=== PATIENT | male | born 1970 | race Caucasian/White ===

== ENCOUNTER → 2019-02-22 | Outpatient (CLI) | payer BC ==
[~2019-02-22] MED LIST: CATHETER FLUSH 10 ML SYR IV PRN; HOLD METFORMIN - RECEIVED CONTRAST 20 ML VIAL IV SCH; IOHEXOL 350 MG/ML 100 ML (OMNIPAQUE 350) VIAL IV ONE; NS 100 ML (IVPB) BAG IV ONE
--- NOTE | 2019-02-22 10:33 | Diagnostic Imaging Report ---
CLINICAL INDICATION: Patient with left-sided neck swelling x1 month. Patient has a history of hyperparathyroidism. Patient has surgical history of partial parathyroidectomy. EXAM: CT scan of the neck soft tissue performed with 75 cc of Omnipaque 350 IV contrast. Sagittal and coronal reformatted images are created. COMPARISON: None. FINDINGS: There are postop changes with partial thyroidectomy with the right thyroid gland and part of the isthmus removed. There are surgical clips in the right thyroid bed area. There is a 6 mm x 5 mm nodular area in the superior right thyroid bed region seen on series 2, image 63 of the axial sequence. There is another 5 mm x 3.5 mm nodular area in the mid right thyroid bed region seen on series 2, image 70. Remaining left thyroid gland is unremarkable. The nasopharynx, oropharynx, hypopharynx, and laryngeal soft tissue structures are unremarkable and symmetric. Visualized portion of the tongue, sublingual space, and submandibular regions are unremarkable. The bilateral submandibular glands are unremarkable. The neck vascular structures are unremarkable. There is no significant lymphadenopathy. There is a marker lymph node in the left level IIa region which measures 14 mm x 8 mm which has a fatty hilum. There is no evidence of left neck soft tissue swelling, fluid collection, or neck mass seen. There is mild atelectasis involving the visualized upper lung lyman. There are cervical spine vertebral body spurs which is most pronounced at the C4-C7 levels with suggestion of diffuse disc bulges. There is moderate right C5-C6 neuroforaminal narrowing due to uncinate spurs and mild to moderate bilateral C6-C7 bony neuroforaminal narrowing due to uncinate spurs. There is at least mild bony central canal narrowing at the C6-C7 level due to posterior disc spurs. The visualized intracranial structures and orbits are unremarkable. There is mild mucosal thickening involving both maxillary sinuses and ethmoid sinus. Mastoid air cells are clear. IMPRESSION: 1: There are right thyroidectomy changes with surgical clips in the region. There are two, nonspecific, nodular soft tissue areas in the superior and mid right thyroid bed region with the largest measuring 6 mm in greatest dimension. This is described above. These are nonspecific and may represent lymph nodes versus parathyroid glands versus other soft tissue abnormality. 2: There is no evidence of neck soft tissue swelling, fluid collection, fat stranding, or other mass in the left neck region. There is no evidence of acute abnormality on this neck CT exam. 3: The remainder of this exam is unremarkable for patient's age. Dictated by: Dictated on workstation # [id number]
== END ==
LOC: RAD FS 08:46
PROVIDERS: ATTEND Nurse Practitioner Family
DX: E04.2 Nontoxic multinodular goiter (principal); E21.3 Hyperparathyroidism, unspecified; R59.0 Localized enlarged lymph nodes; J98.11 Atelectasis; M48.02 Spinal stenosis, cervical region; M46.02 Spinal enthesopathy, cervical region; Z90.49 Acquired absence of other specified parts of digestive tract
CPT/HCPCS: 70491